=== PATIENT | male | born 1940 | race Caucasian/White ===

== ENCOUNTER 2017-02-22 10:02 | Outpatient (RCR) | payer MEDICARE, OTHER ==
[~2017-02-22 10:02] MED LIST: AFLI2VIA IO; ASPI-860 PO; CHOL200014 PO; HCTZ12.5T PO; KRIL1CAP PO; LOSA100T8 PO; LUTE20TA PO; METO-270 PO; MTP25TSR PO; MULT-1034 PO; ROSU40TA PO; UBID200C2 PO; VIT1CAPS5 PO
--- NOTE | 2017-02-28 07:29 | PT/OT/ST INITIAL EVALUATION ---
Department of Health and Human Services Form Approved Health Care Financing Administration OMB No. [id number] PLAN OF CARE/ASSESSMENT FOR OUTPATIENT REHABILITATION (Complete for Initial Claims Only) 1. PATIENT'S NAME Dutch Rod 2. ACC # [id number] [facility]. [id number] 4. PROVIDER NO. [id number] 5. TYPE: SPT 6. PRIOR HOSPITALIZATION 7. PRIMARY DX CVA 8. SECONDARY DX Aphasia 9. ONSET DATE 12/19/2016 10. REFERRAL DATE 02/15/2017 11. SOC. DATE 02/23/2017 12. TIME OF EVAL 12. REFERRING PHYSICIAN Jhonny Banuelos MD 13. CHARGES/UNITS 14. G CODES Currently the patient is a G9162 CI 1-19% impaired. Goal G9163 CI 1-19% impaired. Discharge G9164 CI 1-19% impaired. 15. PRIOR LEVEL OF FUNCTION; PERTINENT HISTORY (Prior therapy results, reason for referral.) S: Reason for referral: Prior to therapy the patient consented to today's evaluation and treatment. The patient is a 76-year-old male referred to speech therapy by Dr. Jhonny Banuelos to address aphasia. Occupational and social health history: He lives at home with his . Primary Complaint: The patient suffered a CVA on 12/19/2016. At this time they were in [place] at their winter home. He had a left parietal occipital stroke. He had apparently been doing well and relatively suddenly developed some incoordinations, some visual impairment while he was playing melo bags. He seemed initially to recover from this impairment but an hour later or so when getting ready to leave he seemed to demonstrate some confusion and disorientation. At that point everybody kind of realized something was going on they loaded him in the golf cart and got to a friend's house in which they made their way to the urgent care center and from there by ambulance to [place]. By the time they reached [place] the window for the thrombolytic therapy had apparently passed and he was observed in the hospital there for several days. As he slowly recovered his main diagnosis was aphasia. He had some speech therapy and did fair with that. They are not sure what testing was done it sounds like he was released on his usual meds with no changes. He then further recovered at home and even participated in a planned 7 day cruise with 10 other couples from [place] in December returning to [place] February 04. He really never did have significant motor deficits. The main issue was the aphasia. This has improved to about 90% of previous but he and his still note sometimes when he can't find the right word, or he knows what he wants to say and he just can't say it. He hasn't had any headache or other issues. His left eye is pretty significantly impaired but he felt the right eye was not functioning typically at the time of the event. He did go see ophthalmology in November and they had no mention of the stroke at that time. He was released from the [facility] with records which he brought for our review and he wanted to get a speech evaluation to see if there is anything else he can be working on. His primary complaint is minimal word finding difficulties at times for words that he does not frequently use. Prior level of function: Prior to this he had no difficulties. Current level of function: Currently he is just complaining of mild word finding difficulties. He did receive a little bit of speech therapy while he was in [place]. Aggravating factors: None. Diagnostic testing: None. Past medical history: Includes CVA and macular degeneration. Past surgical history: Includes bypass surgery approximately 2 years ago. He also had a myocardial infarction in 1983 and prostate cancer, and he is prediabetic. Current medications: The medications are listed in the patient's chart. Personal health rating: The patient rates his overall and general health as good. 16. INITIAL ASSESSMENT/SAFETY PRECAUTIONS/MEDICAL COMPLICATIONS (Level of function at start of care. Be specific, use objective measures, list problems.) O: APPEARANCE, OBSERVATION: Upon assessment the patient was given an evaluation of aphasia. He was able to name 12 pictures independently. He was able to recognize the words and the functions of the objects. He answered yes and no question independently. He followed 1, 2, and 3 sub directions independently. He was able to repeat phrases up to 9 syllables. He did demonstrate at one time leaving one word out in a 4 syllable phrase. Instead of saying "it's time to go" he said "time to go." Other than that he demonstrated no difficulties. He answered problem solving questions independently. He completed sequencing tasks independently. He completed definition of terms independently and he was able to read words independently. The patient was then given the Ross information processing assessment geriatric second edition on this he demonstrated within normal limits for all subtest scores. This looked at immediate memory, temporal orientation, spatial orientation, general information, situational knowledge, categorical vocabulary, and listening comprehension. His overall information processing index was within normal limits. He was given the MOCA Carroll Cognitive Assessment he scored 22/30 on this. Normal is 26/30. The only difficulties the patient demonstrated on this was some visuospatial difficulties however he does have difficulty with his eye sight secondary to macular degeneration. On naming, he demonstrated difficulty with naming one animal it was a rhinoceros and he called it a hippo. On attention he demonstrated mild difficulty with repeating numbers backwards and following directions for tapping every time a letter was read. He had mild difficulty doing serial 7 subtraction from 100 and when repeating one sentence changed minimal words. On abstraction he demonstrated mild difficulty with what 2 words have in common. He got the similarity but not the similarity that the test was looking for. He demonstrated no difficulty with delayed recall or orientation. Overall the patient presents with mild aphasia. He was given activities to work on at home secondary to therapy not indicated at this time. He was given activities he could work on for word finding at home. As well as memory and the patient agreed to work on these activities at home and if he wanted to follow up with therapy he was given the number for therapy. He stated he really wanted activities to work on at home more than coming in for therapy. If therapy was indicated it would only be 1 time a week and this would be working more on memory and attention than word finding. He demonstrated no word finding difficulties throughout therapy. The patient wanted to work on activities at home more than come in for therapy. These were all given to the patient and he is going to do a home exercise program for memory. 17. INITIAL POC: (Specify procedures, modalities, short and parts counterman goals) A: INFORMED CONSENT: The diagnosis, prognosis, treatment plan, risks and expected outcome were discussed with the patient and he agreed to today's established plan of care of evaluation only and wanted to work on things at home. P: Plan to discharge the patient at this time. 18. FREQUENCY 19. DURATION 20. FUNCTIONAL LEVEL (End of claim period) 21. PHYSICIAN SIGNATURE ? ON FILE OR ENTER HERE: 22. DATE: I certify the need for these services furnished under this plan of care and if for partial hospitalization. 23. CERTIFICATION FROM THROUGH [facility]
== END 2017-02-26 13:22 | disposition home or self-care (01) ==
LOC: ST 10:02
PROVIDERS: ATTEND Internal Medicine
DX: I69.320 Aphasia following cerebral infarction (principal)
CPT/HCPCS: 92507; 92523; G9162; G9163; G9164